=== PATIENT | male | born 1940 | race Caucasian/White ===

== ENCOUNTER 2016-04-06 20:57 | Emergency (ER) | payer MEDICARE ==
[2016-04-06 21:13] VITALS: BP 145/73
--- NOTE | 2016-04-06 21:29 | UC ---
Ear Complaint HPI - HPI Summary HPI Summary: 75 y/o male complaining of foreign body (hearing aid tip) located in the left ear canal. Patient was taking out his hearing aid this evening, the rubber tip became disconnected and remained in the left ear canal. - History of Current Complaint Chief Complaint: UC Stated Complaint: FB EAR Time Seen by Provider: 04/06/16 21:07 Hx Obtained From: Patient Onset/Duration: Sudden Onset Severity Currently: None Aggravating Factors: Nothing Alleviating Factors: Nothing Associated Signs/Symptoms: Positive: Hearing Loss - r/t obstructed ear canal, Foreign Body Sensation. Negative: Trauma to Ear - Allergies/Home Medications Allergies/Adverse Reactions: Allergies Allergy/AdvReac Type Severity Reaction Status Date / Time No Known Allergies Allergy Verified 04/06/16 21:08 PMH/Surg Hx/FS Hx/Imm Hx Previously Healthy: Yes Cardiovascular History Of: Reports: Cardiac Disorders - 4 cardiac stents r/t CAD , Hypertension Respiratory History Of: Denies: COPD, Asthma, Bronchitis, Pneumonia, Pulmonary Embolism GI/ History Of: Denies: Gastroesophageal Reflux, Ulcer, Gastrointestinal Bleed, Gall Bladder Disease, Kidney Stones, Diverticulitis, Renal Disease, Urosepsis Neurological History Of: Denies: TIA, CVA Psychological History Of: Denies: Anxiety, Depression, Bipolar Disorder - Surgical History Surgical History: Unable to Obtain/Confirm Surgery Procedure, Year, and Place: PTCA WITH 3 STENT PLACEMENT - Family History Known Family History: Positive: Other - Mother: Hearing loss - Social History Occupation: Retired Lives: With Family Alcohol Use: Daily Alcohol Amount: 1 GLASS/WINE Substance Use Type: None Smoking Status (MU): Never Smoked Tobacco - Immunization History Most Recent Influenza Vaccination: fall 2015 Review of Systems Constitutional: Negative Skin: Negative Eyes: Negative ENT: Other - Left ear foreign body Respiratory: Negative Cardiovascular: Negative Gastrointestinal: Negative Genitourinary: Negative Motor: Negative Neurovascular: Negative Musculoskeletal: Negative Neurological: Negative Psychological: Negative All Other Systems Reviewed And Are Negative: Yes Physical Exam Triage Information Reviewed: Yes Appearance: Well-Appearing, No Pain Distress, Well-Nourished Vital Signs: Initial Vital Signs Temp 97.6 F 04/06/16 21:10 Pulse 59 04/06/16 21:10 Resp 16 04/06/16 21:10 BP 145/73 04/06/16 21:10 Pulse Ox 98 04/06/16 21:10 Vital Signs Reviewed: Yes Eye Exam: Normal Eyes: Positive: Conjunctiva Clear ENT Exam: Normal ENT: Positive: Normal ENT inspection, Hearing grossly normal, Pharynx normal, TMs normal Dental Exam: Normal Neck exam: Normal Neck: Positive: Supple, Nontender, No Lymphadenopathy Respiratory: Positive: Chest non-tender, Lungs clear, Normal breath sounds Cardiovascular: Positive: RRR, No Murmur, Pulses Normal Abdomen Description: Positive: Nontender, No Organomegaly, Soft Bowel Sounds: Positive: Present Musculoskeletal Exam: Normal Musculoskeletal: Positive: Strength Intact, ROM Intact, No Edema Neurological Exam: Normal Neurological: Positive: Alert, Muscle Tone Normal Psychological Exam: Normal Skin Exam: Normal Procedures - Procedure Summary Procedure Summary: Removal of foreign body from left ear canal. After removal, TM visualized, normal, no redness in the ear canal. Ear Complaint Course/Dx - Differential Dx/Diagnosis Provider Diagnoses: foreign body removal Discharge - Discharge Plan Condition: Stable Disposition: HOME Patient Education Materials: Ear Foreign Body (ED) Referrals: Josh Malik MD [Primary Care Provider] - If Needed
== END 2016-04-06 21:30 | disposition home or self-care (01) ==
LOC: UCEAST 20:57
DX: T16.2XXA Foreign body in left ear, initial encounter (principal); X58.XXXA Exposure to other specified factors, initial encounter; Y93.9 Activity, unspecified; Y92.9 Unspecified place or not applicable
CPT/HCPCS: 99211; G0463

== ENCOUNTER 2016-07-27 18:51 | Emergency (ER) | payer MEDICARE ==
[2016-07-27 20:42] VITALS: BP 146/74
--- NOTE | 2016-07-27 20:52 | ED ---
Throat Pain/Nasal Congestion - HPI Summary HPI Summary: Patient presents to ED with erythema surrounding the left sclera of the eye x 2 hours and was sudden. Denies visual disturbances. He states he may have scraped the eye yesterday while hiking in the [place], but doesn't recall an actual trauma. He denies pain. Visual acuity on arrival WNL. He is currently wearing dark sunglasses and is sitting upright. BP 156/102. He takes aspirin daily. He has had cataract surgery 6 months ago without complications. - History of Current Complaint Chief Complaint: EDEyeProblem Time Seen by Provider: 07/27/16 19:41 Hx Obtained From: Patient Onset/Duration: Sudden Onset Severity: Mild - Epiglottits Risk Factors Epiglottis Risk Factors: Negative - Allergies/Home Medications Allergies/Adverse Reactions: Allergies Allergy/AdvReac Type Severity Reaction Status Date / Time No Known Allergies Allergy Verified 04/06/16 21:08 PMH/Surg Hx/FS Hx/Imm Hx Previously Healthy: Yes - cataract surgery Cardiovascular History: Reports: Hx Coronary Artery Disease, Hx Hypertension Respiratory History: Denies: Hx Asthma, Hx Chronic Obstructive Pulmonary Disease (COPD), Hx Pneumonia, Hx Pulmonary Embolism GI History: Denies: Hx Gall Bladder Disease, Hx Gastrointestinal Bleed, Hx Ulcer, Hx Urosepsis History: Denies: Hx Kidney Stones, Hx Renal Disease Sensory History: Reports: Hx Cataracts - SURGERY 11/01, 11/08, Hx Contacts or Glasses, Hx Hearing Aid - BILAT Opthamlomology History: Reports: Hx Cataracts - SURGERY 11/01, 11/08, Hx Contacts or Glasses Neurological History: Denies: Hx Transient Ischemic Attacks (TIA) Psychiatric History: Denies: Hx Anxiety, Hx Depression, Hx Bipolar Disorder - Surgical History Surgery Procedure, Year, and Place: PTCA WITH 3 STENT PLACEMENT Hx Anesthesia Reactions: No - Immunization History Hx Pertussis Vaccination: No Immunizations Up to Date: Unable to Obtain/Confirm Infectious Disease History: No Infectious Disease History: Denies: Traveled Outside the [place] in Last 30 Days - Family History Known Family History: Positive: Other - Mother: Hearing loss - Social History Occupation: Unemployed Lives: With Family Alcohol Use: Daily Alcohol Amount: 1 GLASS/WINE Hx Substance Use: Yes Substance Use Type: Reports: Marijuana Substance Use Comment - Amount & Last Used: occasionally Hx Tobacco Use: No Smoking Status (MU): Never Smoked Tobacco Review of Systems Constitutional: Negative Positive: Erythema ENT: Negative Cardiovascular: Negative Genitourinary: Negative Musculoskeletal: Negative Neurological: Negative Psychological: Normal All Other Systems Reviewed And Are Negative: Yes Physical Exam Triage Information Reviewed: Yes Vital Signs On Initial Exam: Initial Vitals Temp Pulse Resp BP Pulse Ox 97.2 F 59 20 156/102 100 07/27/16 18:53 07/27/16 18:53 07/27/16 18:53 07/27/16 18:53 07/27/16 18:53 Vital Signs Reviewed: Yes Appearance: Positive: Well-Appearing, No Pain Distress, Well-Nourished Skin: Positive: Warm, Skin Color Reflects Adequate Perfusion Eyes: Positive: EOMI, BAYRON, Conjunctiva Inflammed, Other: - inflamed chemosis and subconjunctival hemorrhage covering most of sclera of left eye without visual disturbances Neck: Positive: Supple, No Lymphadenopathy Respiratory/Lung Sounds: Positive: Clear to Auscultation, Breath Sounds Present Cardiovascular: Positive: Normal, RRR, Pulses are Symmetrical in both Upper and Lower Extremities Musculoskeletal: Positive: Normal, Strength/ROM Intact Psychiatric: Positive: Normal AVPU Assessment: Alert - Manpreet Coma Scale Best Eye Response: 4 - Spontaneous Best Motor Response: 6 - Obeys Commands Best Verbal Response: 5 - Oriented Coma Scale Total: 15 Diagnostics - Vital Signs Vital Signs Temp Pulse Resp BP Pulse Ox 07/27/16 20:41 98.4 F 52 18 146/74 07/27/16 18:56 97.3 F 58 20 156/102 100 07/27/16 18:53 97.2 F 59 20 156/102 100 - Laboratory Lab Statement: Any lab studies that have been ordered have been reviewed, and results considered in the medical decision making process. EENT Course/Dx - Course Course Of Treatment: Patient presents with inflamed chemosis and subconjunctival hemorrhage covering most of sclera of left eye without visual disturbances. Dr. Shahid to see patient. Will refer to Dr. Crain for follow up tomorrow. Encouraged Tylenol for pain. No hyphema noted. No pain or distress or possible FB in eye. - Differential Diagnoses Differential Diagnoses: Hyphema, Pain of Unknown Etiology, Penetrating Injury, Retinal Artery Occlusion - Diagnoses Provider Diagnoses: Subconjunctival hemorrhage of left eye Discharge - Discharge Plan Condition: Stable Disposition: HOME Patient Education Materials: Subconjunctival Hemorrhage (ED) Referrals: Josh Malik MD [Primary Care Provider] - Biju Crain MD [Family Provider] - Additional Instructions: Follow up with Dr. Crain's office tomorrow morning. Tylenol for discomfort. If you develop any worsening pain or discomfort or visual changes, return to ED right away.
== END 2016-07-27 20:41 | disposition home or self-care (01) ==
LOC: ED 18:51
DX: H11.32 Conjunctival hemorrhage, left eye (principal)
CPT/HCPCS: 99281

== ENCOUNTER 2017-04-23 | Emergency (ER) | payer MEDICARE ==
[2017-04-23 01:01] LABS: ABS Basophils 0.1 10^3/ul (0-0.2); ABS Eosinophils 0.2 10^3/ul (0-0.6); ABS Lymphocytes 1.9 10^3/ul (1.0-4.8); ABS Monocytes 0.5 10^3/ul (0-0.8); ABS Neutrophils 3.1 10^3/ul (1.5-7.7); ABS Nucleated RBC 0 10^3/ul; Hematocrit 39 % (42-52); Hemoglobin 13.6 g/dl (14.0-18.0); Lymphocyte % 33.3 % (25-47); Mean Corpuscular HGB Conc 35 g/dl (31-36); Mean Corpuscular Hemoglobin 32 pg (27-31); Mean Corpuscular Volume 92 fL (80-94); Mean Platelet Volume 8 um3 (7.4-10.4); Nucleated Red Blood Cells % 0; Platelet Count 166 10^3/ul (150-450); Red Blood Count 4.26 10^6/ul (4.0-5.4); Red Cell Distribution Width 13 % (10.5-15); White Blood Count 5.8 10^3/ul (3.5-10.8)
[2017-04-23 01:10] LABS: INR 0.98 (0.77-1.02)
[2017-04-23 01:22] LABS: EGFR Non-African American 89.1 (>60)
[2017-04-23 02:14] VITALS: BP 160/69
--- NOTE | 2017-04-23 02:21 | ED ---
Janie Morse Julia, scribed for Yannick Martin MD on 04/23/17 at 0033 . Syncope/Near Syncope - HPI Summary HPI Summary: This patient is a 77 year old M BIBA to [facility] with a chief complaint of the sudden lightheadedness and near syncopal event at noon today, that is currently improved. Patient reports something on left side, but is not painful. He reports general unease. Patient denies palpitations and pain. States Dr. Hines states he is usually asymptomatic with cardiac issues. Medications reviewed this visit. - History Of Current Complaint Chief Complaint: EDSyncope Time Seen by Provider: 04/23/17 00:13 Hx Obtained From: Patient Onset/Duration: Lasting Hours Associated Head Trauma: No Associated Signs And Symptoms: Lightheadedness, Other - general unease Related History: Similar Episode/Dx as - cardiac history with limited symptoms - Allergies/Home Medications Allergies/Adverse Reactions: Allergies Allergy/AdvReac Type Severity Reaction Status Date / Time No Known Allergies Allergy Verified 04/23/17 00:06 PMH/Surg Hx/FS Hx/Imm Hx Cardiovascular History: Reports: Hx Angina, Hx Coronary Artery Disease, Hx Hypertension Respiratory History: Denies: Hx Asthma, Hx Chronic Obstructive Pulmonary Disease (COPD), Hx Pneumonia, Hx Pulmonary Embolism GI History: Denies: Hx Gall Bladder Disease, Hx Gastrointestinal Bleed, Hx Ulcer, Hx Urosepsis History: Denies: Hx Kidney Stones, Hx Renal Disease Sensory History: Reports: Hx Cataracts - SURGERY 11/01, 11/08, Hx Contacts or Glasses, Hx Hearing Aid - BILAT Opthamlomology History: Reports: Hx Cataracts - SURGERY 11/01, 11/08, Hx Contacts or Glasses Neurological History: Denies: Hx Transient Ischemic Attacks (TIA) Psychiatric History: Denies: Hx Anxiety, Hx Depression, Hx Bipolar Disorder - Surgical History Surgery Procedure, Year, and Place: PTCA WITH 3 STENT PLACEMENT Hx Anesthesia Reactions: No Infectious Disease History: No Infectious Disease History: Denies: Traveled Outside the [place] in Last 30 Days - Family History Known Family History: Positive: Other - Mother: Hearing loss - Social History Alcohol Use: Daily Alcohol Amount: 1 GLASS/WINE Hx Substance Use: Yes Substance Use Type: Reports: Marijuana Substance Use Comment - Amount & Last Used: occasionally Hx Tobacco Use: No Smoking Status (MU): Never Smoked Tobacco Review of Systems Positive: Other - general unease Negative: Palpitations, Chest Pain Neurological: Other - lightheadedness Negative: Syncope - near All Other Systems Reviewed And Are Negative: Yes Physical Exam - Summary Physical Exam Summary: VITAL SIGNS: Reviewed. GENERAL: Patient is a well-developed and nourished male who is lying comfortable in the stretcher. Patient is not in any acute respiratory distress. HEAD AND FACE: No signs of trauma. No ecchymosis, hematomas or skull depressions. No sinus tenderness. EYES: PERRLA, EOMI x 2, No injected conjunctiva, no nystagmus. EARS: Hearing grossly intact. Ear canals and tympanic membranes are within normal limits. MOUTH: Oropharynx within normal limits. NECK: Supple, trachea is midline, no adenopathy, no JVD, no carotid bruit, no c- spine tenderness, neck with full ROM. CHEST: Symmetric, no tenderness at palpation LUNGS: Clear to auscultation bilaterally. No wheezing or crackles. CVS: Bradycardic rate and regular rhythm, S1 and S2 present, no murmurs or gallops appreciated. ABDOMEN: Soft, non-tender. No signs of distention. No rebound no guarding, and no masses palpated. Bowel sounds are normal. EXTREMITIES: FROM in all major joints, no edema, no cyanosis or clubbing. NEURO: Alert and oriented x 3. No acute neurological deficits. Speech is normal and follows commands. SKIN: Dry and warm Triage Information Reviewed: Yes Vital Signs On Initial Exam: Initial Vitals Temp Pulse Resp BP Pulse Ox 97.9 F 54 16 177/70 99 04/23/17 00:03 04/23/17 00:03 04/23/17 00:03 04/23/17 00:03 04/23/17 00:03 Vital Signs Reviewed: Yes Diagnostics - Vital Signs Vital Signs Temp Pulse Resp BP Pulse Ox 04/23/17 00:03 97.9 F 54 16 177/70 99 - Laboratory Result Diagrams: 04/23/17 00:44 04/23/17 00:44 Lab Statement: Any lab studies that have been ordered have been reviewed, and results considered in the medical decision making process. - Radiology CXR Radiology Interpretation Completed By: ED Physician - No acute process. - EKG 0021 Cardiac Rate: Bradycardia - at 51 BPM EKG Rhythm: Sinus Bradycardia EKG Interpretation: LVH Course/Dx Course Of Treatment: Patient brought to the ED due to sudden lightheadedness and near syncopal event at noon today, that is currently improved. States Dr. Hines states he is usually asymptomatic with cardiac issues. Patient feels better while in ED. Negative orthostatics. Labs reviewed with patient. TSH was elevated, this could be the reason for bradycardia. Patient is advised to follow up with primary care physician later today. - Diagnoses Provider Diagnoses: Dizziness Discharge - Discharge Plan Condition: Stable Disposition: HOME Patient Education Materials: Lightheadedness (ED) Referrals: Josh Malik MD [Primary Care Provider] - As Soon As Possible (Follow up with your primary care physician later today.) Additional Instructions: RETURN TO THE EMERGENCY DEPARTMENT FOR CHANGING OR WORSENING SYMPTOMS. The documentation as recorded by the Janie barton Julia accurately reflects the service I personally performed and the decisions made by me, Yannick Martin MD.
--- NOTE | 2017-04-23 08:15 | RAD ---
Indication: Presyncope. Hypertension. Comparison: January 24, 2010 Technique: Upright AP 0048 hours Report: Elevated lung volumes and both diffuse mild prominence of the interstitial markings and patchy rarefaction of the mid to upper lung zone interstitial markings. No focal pulmonary lesion, compelling alveolar consolidation, pleural effusion, pneumothorax. Upper normal heart size. Unremarkable central pulmonary vasculature and mediastinal contours. IMPRESSION: Stigmata of probable obstructive lung disease. No acute pulmonary or cardiac process evident.
== END 2017-04-23 02:14 | disposition home or self-care (01) ==
LOC: ED
DX: R42 Dizziness and giddiness (principal); I25.10 Atherosclerotic heart disease of native coronary artery without angina pectoris; Z86.79 Personal history of other diseases of the circulatory system
CPT/HCPCS: 36415; 71045; 80053; 83605; 83735; 84443; 84484; 85025; 85610; 85730; 93005; 99283

== ENCOUNTER 2018-11-24 08:18 | Observation (INO) | payer MEDICARE ==
[~2018-11-24 08:18] MED LIST: Dexamethasone IV* 4 MG/ML 1 ML (4 MG) IV SLOW PU ONE; Famotidine TAB* 20 MG PO ONE; Lactated Ringers 1000 ML Bag* 1,000 ML IV SCH
[2018-11-24] MEDS ORDERED: Dexamethasone IV* 4 MG/ML 1 ML (4 MG) ONE (08:41)
[2018-11-24] MEDS ORDERED: Famotidine TAB* 20 MG ONE (08:41)
[2018-11-24] MEDS ORDERED: ceFAZolin 2 GM PREMIX in ORs 2 GM/50 ML BAG ONE (08:41)
[2018-11-24] MEDS ORDERED: KETAMINE HCL* 50 MG/ML 10 ML VIAL ONE (08:54)
[2018-11-24] MEDS ORDERED: fentaNYL* 50 MCG/ML 2 ML VIAL (100 MCG VIAL) ONE (08:54)
[2018-11-24] MEDS ORDERED: Midazolam* 1 MG/ML 2 ML VIAL (2 MG) ONE (08:54)
[2018-11-24] MEDS ORDERED: HYDROmorphone INJ1* 1 MG/ML SYRINGE ONE (08:54)
[2018-11-24] MEDS ORDERED: Lidocaine 2% PF * 5 ML VIAL ONE (08:56)
[2018-11-24] MEDS ORDERED: Rocuronium* 10 MG/ML VIAL ONE (08:56)
[2018-11-24] MEDS ORDERED: Propofol* 10 MG/ML 20 ML BTL ONE (08:56)
[2018-11-24] MEDS ORDERED: Lidocaine 1% w EPI 1:100,000* MDV 20 ML VIAL ONE (09:02)
[2018-11-24] MEDS ORDERED: Thrombin 5,000 UNITS(BOVINE)* for Ultrasound Guided Pseudoaneursym ONE (09:02)
[2018-11-24] MEDS ORDERED: Bacitracin INJECTION* 50,000 UNITS ONE (09:02)
[2018-11-24] MEDS: Buffered Lidocaine 1% SYRIN* 1 ML/SYRINGE INTRADERM ONE ×2 (09:05→11:49)
[2018-11-24] MEDS ORDERED: EPHEDrine (Pressors)* 50 MG/ML VIAL ONE (10:18)
[2018-11-24] MEDS ORDERED: oxyCODONE/Acetamin 5/325 MG* TAB PO PRN (10:29)
[2018-11-24] MEDS ORDERED: HYDROmorphone INJ1* 1 MG/ML SYRINGE IV PRN (10:29)
[2018-11-24] MEDS ORDERED: fentaNYL* 50 MCG/ML 2 ML VIAL (100 MCG VIAL) IV PRN (10:29)
[2018-11-24] MEDS ORDERED: DiMENhydriNATE IV* 50 MG/ML VIAL IV PUSH PRN (10:29)
[2018-11-24] MEDS ORDERED: Ketorolac INJ* 30 MG/ML 1 ML VIAL IV PRN (10:29)
[2018-11-24] MEDS ORDERED: Acetaminophen IV 1GM/100ML * 1,000 MG/100 ML VIAL IVPB ONE (10:29)
[2018-11-24] MEDS ORDERED: PROCHLORPERAZINE INJ 5 MG/ML 2 ML VIAL IV PRN (10:29)
[2018-11-24] MEDS ORDERED: Naloxone* 0.4 MG/ML 1 ML VIAL IV PRN (10:29)
[2018-11-24] MEDS ORDERED: Ondansetron INJ* 2 MG/ML VIAL ONE (10:51)
[2018-11-24] MEDS ORDERED: Sugammadex * 200 MG/2 ML VIAL IV PUSH ONE (10:52)
[2018-11-24] MEDS ORDERED: Magnesium Hydroxide LIQ* 30 ML UDC PO PRN (11:09)
[2018-11-24] MEDS ORDERED: Zolpidem TAB* 10 MG PO PRN (11:09)
[2018-11-24] MEDS ORDERED: HYDROcodone/ACETAMIN 5-325 MG* 1 TAB PO PRN (11:09)
[2018-11-24] MEDS ORDERED: Ondansetron INJ* 2 MG/ML VIAL IV PRN (11:09)
[2018-11-24] MEDS ORDERED: Acetaminophen TAB* 325 MG PO PRN (11:09)
[2018-11-24] MEDS ORDERED: Naloxone* 0.4 MG/ML 10 ML VIAL ONE (11:10)
[2018-11-24] MEDS ORDERED: Ketorolac INJ* 30 MG/ML 1 ML VIAL ONE (11:43)
[2018-11-24] MEDS ORDERED: Acetaminophen IV 1GM/100ML * 100 ML ONE (11:43)
[2018-11-24] MEDS ORDERED: hydrALAZINE IV* 20 MG/ML VIAL ONE (11:54)
[2018-11-24] MEDS ORDERED: Lactated Ringers 1000 ML Bag* 1,000 ML IV SCH (12:00)
[2018-11-24] MEDS ORDERED: hydrALAZINE IV* 20 MG/ML VIAL IV SLOW PU ONE (12:40)
[2018-11-24 15:13] VITALS: BP 142/55
--- NOTE | 2018-12-03 10:51 | OP ---
DATE OF OPERATION: 11/24/18 - ROOM #335 DATE OF : 44 PRIMARY SURGEON: Sam Rivas MD. ANESTHESIA: General. PRE-OP DIAGNOSIS: Herniated nucleus pulposus, L4-5 on the right. POST-OP DIAGNOSIS: Herniated nucleus pulposus, L4-5 on the right. OPERATIVE PROCEDURE: Lumbar microdiskectomy at L4-5 on the right with microdissection. DESCRIPTION OF PROCEDURE: After satisfactory general anesthesia was obtained, the patient was placed on the operating table in the prone position with the chest supported on the Daniel frame and the back slightly flexed. The lumbar region was then clipped, prepped and draped in a sterile manner for a lumbar laminectomy and a skin incision outlined from L4 to L5. This incision was infiltrated with 1% Xylocaine with epinephrine, after which it was turned down sharply to the level of the lumbar fascia. The fascia was divided along the spinous processes of L4 and L5 and the paraspinal musculature stripped away from the right side using the periosteal elevator and monopolar cautery. An intraoperative x-ray was obtained verifying proper interspace localization, after which a partial hemilaminectomy was carried out by removing the inferior aspect of the L4 lamina and medial aspect of the facet complex with a combination of Midas Rian drill and Kerrison rongeurs. Additional superior exposure was obtained as preoperative imaging had suggested far-lateral disk herniation at the L4-5. After removing the ligamentum flavum, the operating microscope was brought into the field and the remaining of the procedure was done under microscopic visualization. Utilizing microdissection, epidural venous structures were coagulated and divided. By projecting into the neural foramen was an extruded disk fragment covered by thin rim of posterior longitudinal ligament. The posterior longitudinal ligament was opened and multiple fragments were removed from over the L4 vertebral body and extending out compressing the L4 nerve root. The opening was then enlarged and disk space itself cleared of any loose disk material using pituitary forceps and curettes. It was felt that a satisfactory decompression had been achieved. After assuring adequate hemostasis, the wound was thoroughly irrigated after which a piece of Gelfoam was placed over the laminectomy defect. The fascia was then reapproximated with 0 Vicryl suture. The subcutaneous tissue was closed with 3-0 Vicryl suture and the skin closed with Steri-Strips. The estimated blood loss was less than 50 cc and the final sponge, padding, and needle counts were correct. The patient was taken to the recovery room, extubated, and in stable condition. [id number]/[facility] #: [id number] [facility]
== END 2018-11-24 18:12 | disposition home or self-care (01) ==
LOC: OR 08:18 → SSU 12:36
PROVIDERS: ADMIT Neurological Surgery; ATTEND Neurological Surgery
DX: M51.26 Other intervertebral disc displacement, lumbar region (principal); M54.9 Dorsalgia, unspecified; I10 Essential (primary) hypertension; I25.10 Atherosclerotic heart disease of native coronary artery without angina pectoris; Z95.5 Presence of coronary angioplasty implant and graft; E78.5 Hyperlipidemia, unspecified; N40.0 Benign prostatic hyperplasia without lower urinary tract symptoms
CPT/HCPCS: 72100; A9270-GY; G0378; J0360; J0690; J1100; J1170; J1885; J2250; J2310; J2405; J2704; J3010

== ENCOUNTER 2023-09-26 12:25 | Observation (INO) ==
[2023-09-26 13:55] LABS: ABS Basophils 0.1 10^3/uL (0.0-0.1); ABS Eosinophils 0.1 10^3/uL (0.0-0.5); ABS Lymphocytes 0.8 10^3/uL (1.0-4.8); ABS Monocytes 0.6 10^3/uL (0.0-1.1); ABS Neutrophils 6.5 10^3/uL (1.5-7.6); Eosinophil % 1.3 %; Hemoglobin 12.9 g/dL (13.2-16.3); Lymphocyte % 10.1 %; Mean Corpuscular Hemoglobin 30.9 pg (27-33); Mean Corpuscular Hgb Conc 33.2 g/dL (31-36); Platelet Count 130 10^3/uL (150-450); Red Blood Count 4.19 10^6/uL (4.06-5.63); Red Cell Distribution Width 14.6 % (12-17); White Blood Count 8.1 10^3/uL (3.6-10.2)
[2023-09-26 14:15] LABS: High Sens Troponin Baseline 14 pg/mL (<20)
[2023-09-26 14:24] LABS: ALT 26 U/L (7-52); AST 20 U/L (13-39); Albumin/Globulin Ratio 2.2 (1-3); Alcohol, S < 13 mg/dL (<13); Alkaline Phosphatase 63 U/L (35-149); Anion Gap 4 mmol/L (2-16); Blood Urea Nitrogen 20 mg/dL (6-24); CO2 Carbon Dioxide 29 mmol/L (22-32); Calcium 8.9 mg/dL (8.6-10.3); Chloride 101 mmol/L (101-111); Creatine Kinase 113 U/L (10-223); Creatinine, Serum 1.13 mg/dL (0.67-1.17); Globulin 1.8 g/dL (2-4); Glucose 137 mg/dL (70-100); Magnesium 2.2 mg/dL (1.9-2.7); Potassium 4.3 mmol/L (3.5-5.0); Sodium 134 mmol/L (135-145); Total Bilirubin 0.8 mg/dL (0.2-1.0); Total Protein 5.8 g/dL (6.4-8.9); eGFR CKD-EPI 65.3 (>60)
[2023-09-26] MEDS: Iohexol 300 (CONTRAST) 10 ML SDV IV ONE (15:08)
[2023-09-26 16:29] LABS: High Sensitivity Troponin 1 Hr 14 pg/mL (<20)
[2023-09-26] MEDS: Morphine 2 MG/ML SYRINGE IV ONE (19:15)
[2023-09-26] MEDS: Lidocaine PATCH 5% PATCH TRANSDERM ONE (19:20)
[2023-09-26 19:44] LABS: Urine Appearance Clear; Urine Bilirubin Negative (Negative); Urine Blood Trace (Negative); Urine Color Light-Yellow; Urine Glucose Negative (Negative); Urine Ketones Trace (Negative); Urine Nitrite Negative (Negative); Urine Protein Negative (Negative); Urine Specific Gravity 1.038 (1.002-1.030); Urine Urobilinogen Negative (Negative); Urine pH 6.5 (5.0-8.0)
[2023-09-26 19:52] LABS: Hematocrit 34.9 % (38-53); Mean Corpuscular Hemoglobin 31.7 pg (27-33); Mean Corpuscular Hgb Conc 34.4 g/dL (31-36); Mean Corpuscular Volume 92.1 fL (80-97); Mean Platelet Volume 10.7 fL (7.5-11.2); Platelet Count 116 10^3/uL (150-450); Red Blood Count 3.79 10^6/uL (4.06-5.63); Red Cell Distribution Width 14.5 % (12-17); White Blood Count 7.6 10^3/uL (3.6-10.2)
[2023-09-26] MEDS ORDERED: Morphine 4 MG/ML VIAL (1 ml) IV PRN (20:21)
[2023-09-27 07:25] LABS: ABS Eosinophils 0.2 10^3/uL (0.0-0.5); ABS Lymphocytes 1.2 10^3/uL (1.0-4.8); ABS Monocytes 0.6 10^3/uL (0.0-1.1); ABS Neutrophils 4.5 10^3/uL (1.5-7.6); Eosinophil % 3.4 %; Hematocrit 36.1 % (38-53); Hemoglobin 12.3 g/dL (13.2-16.3); Mean Corpuscular Hemoglobin 31.5 pg (27-33); Mean Corpuscular Hgb Conc 34.1 g/dL (31-36); Mean Corpuscular Volume 92.3 fL (80-97); Mean Platelet Volume 10.4 fL (7.5-11.2); Platelet Count 107 10^3/uL (150-450); Red Blood Count 3.92 10^6/uL (4.06-5.63); Red Cell Distribution Width 14.3 % (12-17); White Blood Count 6.5 10^3/uL (3.6-10.2)
[2023-09-27 07:34] LABS: Albumin 3.5 g/dL (3.2-5.2); Albumin/Globulin Ratio 1.8 (1-3); Creatinine, Serum 1.03 mg/dL (0.67-1.17); Globulin 1.9 g/dL (2-4); Phosphorus 2.6 mg/dL (2.5-5.0); Potassium 3.8 mmol/L (3.5-5.0); Total Bilirubin 0.9 mg/dL (0.2-1.0); Total Protein 5.4 g/dL (6.4-8.9)
[2023-09-27] MEDS: Sulfur Hexaflouride MICROSPHR 25 MG VIAL IV ONE (09:15)
[2023-09-27] MEDS: NS 0.9% 1000 ml BAG 1,000 ML IV SCH (09:19)
[2023-09-27] MEDS ORDERED: Midazolam 5 mg/5 ml VIAL 1 mg/ml 5 ml VIAL (5 mg) ONE (10:26)
[2023-09-27] MEDS ORDERED: fentaNYL 250 mcg/5 ml 50 MCG/ML 5 ml VIAL (250 MCG) ONE (10:27)
[2023-09-27] MEDS ORDERED: Lidocaine 1% VIAL 10 MG/ML 30 ML VIAL ONE (10:27)
[2023-09-27] MEDS: ceFAZolin 2 GM PREMIX 2 GM/50 ML BAG IV ONE (10:45)
[2023-09-27] MEDS: fentaNYL 100 mcg/2 ml 50 MCG/ML VIAL IV SLOW PU ONE (11:18)
[2023-09-27] MEDS: Midazolam 10 mg/10 ml VIAL 1 mg/ml 10 ml VIAL (10 mg) IV SLOW PU ONE (11:19)
[2023-09-27] MEDS: ceFAZolin SYR FLUSH 1 GM/10 ML for pocket flush (cardiology) FLUSH ONE (11:46)
[2023-09-27 18:01] LABS: Hematocrit 39.1 % (38-53); Hemoglobin 13.2 g/dL (13.2-16.3); Mean Corpuscular Hemoglobin 31.2 pg (27-33); Mean Corpuscular Hgb Conc 33.8 g/dL (31-36); Mean Corpuscular Volume 92.3 fL (80-97); Platelet Count 119 10^3/uL (150-450); Red Blood Count 4.23 10^6/uL (4.06-5.63); Red Cell Distribution Width 14.7 % (12-17); White Blood Count 9.5 10^3/uL (3.6-10.2)
[2023-09-27] MEDS: ceFAZolin VIAL 1 GM in NS 0.9% 50 ML 50 ML IVPB SCH (19:58)
[2023-09-28 06:42] LABS: Hematocrit 33.7 % (38-53); Hemoglobin 11.9 g/dL (13.2-16.3); Mean Corpuscular Hemoglobin 32.3 pg (27-33); Mean Corpuscular Hgb Conc 35.2 g/dL (31-36); Mean Corpuscular Volume 91.8 fL (80-97); Mean Platelet Volume 9.8 fL (7.5-11.2); Platelet Count 104 10^3/uL (150-450); Red Blood Count 3.68 10^6/uL (4.06-5.63); Red Cell Distribution Width 14.4 % (12-17); White Blood Count 6.3 10^3/uL (3.6-10.2)
[2023-09-28 06:59] LABS: Calcium 7.7 mg/dL (8.6-10.3); Creatinine, Serum 0.89 mg/dL (0.67-1.17); Magnesium 1.8 mg/dL (1.9-2.7); Potassium 3.8 mmol/L (3.5-5.0); eGFR CKD-EPI 86.1 (>60)
[2023-09-28] MEDS: Potassium Chlor 20 meq TAB.ER PO ONE (09:33)
[2023-09-28] MEDS: Magnesium Sulfate 2 gm BAG 2 GM/50 ML BAG IVPB ONE (09:34)
[2023-09-28] MEDS: Enoxaparin 40 MG/0.4 ML SYR SUBCUT SCH (12:04)
[2023-09-28 13:18] VITALS: BP 151/75
[2023-09-29 16:49] LABS: Anaplasma phagocytophilum Negative (Negative); B. miyamotoi PCR, B Negative (Negative); Babesia divergens/MO-1 Negative (Negative); Babesia ducani Negative (Negative); Ehrlichia chaffeensis Negative (Negative); Ehrlichia ewingii/canis Negative (Negative); Ehrlichia muris eauclairensis Negative (Negative)
== END 2023-09-28 14:50 | disposition home or self-care (01) ==
LOC: EDHOLD 12:25 → ED 12:25 → SUATTDRO 18:45 → MEDTELE 22:04
PROVIDERS: ADMIT Internal Medicine; ATTEND Internal Medicine